=== PATIENT | male | born 1970 | race Caucasian/White ===

== ENCOUNTER 2022-05-22 08:18 | Outpatient (CLI) | payer OTHER, SELFPAY ==
[2022-05-22 13:35] LABS: Hematocrit 46.7 % (37.0-53.0); Hemoglobin* 15.9 gm/dL (13.5-17.5); Red Blood Count 5.14 m/uL (4.30-5.90); White Blood Count* 4.04 K/uL (4.50-11.00)
[2022-05-22 13:36] LABS: Basophils Percent Auto 0.5 % (0.0-3.0); Immature Granulocytes Pct Auto 0.5 %; Lymphocytes Percent Auto 33.7 % (20-44); Mean Corpuscular HGB Conc 34 gm/dL (32-36); Mean Corpuscular Hemoglobin 31 pg (26-34); Mean Corpuscular Volume 91 fL (80-100); Monocytes Percent Auto 10.6 % (0.0-11.0); Neutrophils Percent Auto 51.7 % (42.0-72.0); Platelet Count* 182 K/uL (140-440); RDW Coefficient of Variation % 12.8 % (11.5-15.5)
[2022-05-22 13:40] LABS: Slide Review Reflex No
[2022-05-22 13:52] LABS: Chloride* 105 mmol/L (96-114); Potassium* 4.5 mmol/L (3.6-5.1); Sodium* 141 mmol/L (135-149)
[2022-05-22 13:55] LABS: Blood Urea Nitrogen* 16 mg/dL (7-30); Carbon Dioxide* 25 mmol/L (20-32); Cholesterol* 183 mg/dL (90-199); Estimated Glomerular Filt Rate 90 ml/min
[2022-05-22 13:56] LABS: Calcium* 9.5 mg/dL (8.4-10.6); Glucose* 102 mg/dL (60-115); HDL Cholesterol* 55 mg/dL (>=40); LDL Cholesterol Calculated 76 mg/dL (<100); Triglycerides* 258 mg/dL (40-149)
[2022-05-22 14:20] LABS: PSA Screen* 0.78 ng/mL (0.10-4.00)
== END 2022-05-22 08:19 | disposition home or self-care (01) ==
PROVIDERS: PCP Nurse Practitioner Family; Visit Provider Nurse Practitioner Family
DX: Z00.00 Encounter for general adult medical examination without abnormal findings (principal); I10 Essential (primary) hypertension; Z12.5 Encounter for screening for malignant neoplasm of prostate; Z13.0 Encounter for screening for diseases of the blood and blood-forming organs and certain disorders involving the immune mechanism; Z13.6 Encounter for screening for cardiovascular disorders
CPT/HCPCS: 80048; 80061; 84153; 85025

== ENCOUNTER 2023-08-30 08:16 | Outpatient (CLI) | payer OTHER, SELFPAY | END 2023-08-30 08:17 | disposition home or self-care (01) | PROVIDERS: PCP Nurse Practitioner Family; Visit Provider Nurse Practitioner Family | DX: Z12.5 Encounter for screening for malignant neoplasm of prostate (principal); Z13.0 Encounter for screening for diseases of the blood and blood-forming organs and certain disorders involving the immune mechanism; Z13.220 Encounter for screening for lipoid disorders; Z13.228 Encounter for screening for other metabolic disorders | CPT/HCPCS: 80053; 80061; 85025; G0103 ==

== ENCOUNTER 2025-03-18 08:19 | Outpatient (CLI) | payer OTHER, SELFPAY | END 2025-03-18 08:20 | disposition home or self-care (01) | PROVIDERS: PCP Nurse Practitioner Family; Visit Provider Nurse Practitioner Family | DX: I10 Essential (primary) hypertension (principal); Z12.5 Encounter for screening for malignant neoplasm of prostate; Z13.6 Encounter for screening for cardiovascular disorders; Z13.0 Encounter for screening for diseases of the blood and blood-forming organs and certain disorders involving the immune mechanism | CPT/HCPCS: 80053; 80061; 85025; G0103 ==